=== PATIENT | male | born 1990 | race Two or more races ===

== ENCOUNTER 2021-09-05 16:15 | Emergency (ER) | payer BC ==
[~2021-09-05] VITALS: Ht 190.5 cm; Wt 90.7 kg
== END 2021-09-05 19:20 | disposition home or self-care (01) ==
LOC: ER 16:15
DX: S43.005A Unspecified dislocation of left shoulder joint, initial encounter (principal); X58.XXXA Exposure to other specified factors, initial encounter; Y92.89 Other specified places as the place of occurrence of the external cause